=== PATIENT | male | born 1990 | race Two or more races ===

== ENCOUNTER 2018-01-15 12:53 | Day surgery (SDC) | payer BC ==
[2018-01-15] MEDS ORDERED: PROPOFOL 20 ML (14:45)
[2018-01-15] MEDS ORDERED: MIDAZOLAM 1 MG/ML 2 ML INJ (14:46)
== END 2018-01-15 17:05 | disposition home or self-care (01) ==
LOC: GIL 12:53
DX: R10.9 Unspecified abdominal pain (principal); R63.4 Abnormal weight loss
CPT/HCPCS: 43235